=== PATIENT | female | born 1960 | race Caucasian/White ===

== ENCOUNTER 2017-07-05 11:49 | Emergency (ER) | payer OTHER ==
[2017-07-05 11:59] VITALS: RESP 18
--- NOTE | 2017-07-05 11:59 | CPEKG ---
Heart Rate: 64 RR Interval: 938 P-R Interval: 152 QRSD Interval: 104 QT Interval: 400 QTC Interval: 413 P [place]: -11 QRS [place]: 70 T Wave [place]: 36 EKG Severity - NORMAL ECG - EKG Impression: SINUS RHYTHM Electronically Signed By: Michaela Khanna 05-Jul-2017 14:00:56
[2017-07-05 12:16] VITALS: TEMP 98.8
[2017-07-05 12:30] LABS: % IMMATURE GRANULYOCYTES 0.3 % (0.0-1.1); ABSOLUTE IMMATURE GRANULOCYTES 0.01 10^3/uL (0.00-0.10); ADD DIFF? NO; ADD MORPH? NO; ADD SCAN? NO; ATYPICAL LYMPHOCYTE FLAG 0 (0-99); FRAGMENT RBC FLAG 0 (0-99); HEMATOCRIT 41.8 % (38.0-47.0); HEMOGLOBIN 14.3 g/dL (12.6-16.3); LEFT SHIFT FLG 0 (0-99); LIPEMIA HEMOLYSIS FLAG 90 (0-99); MEAN CELL HEMOGLOBIN 30.1 pg (27.9-34.1); MEAN CELL HEMOGLOBIN CONCENTR. 34.2 g/dL (32.4-36.7); MEAN PLATELET VOLUME 9.6 fL (8.7-11.7); PLATELET CLUMPS FLAG 0 (0-99); PLATELET COUNT 196 10^3/uL (150-400); RED BLOOD CELL COUNT 4.75 10^6/uL (4.18-5.33)
[2017-07-05] MEDS ORDERED: ASPIRIN 81 MG CHEWABLE TAB PO ONE (12:30)
--- NOTE | 2017-07-05 12:34 | EDPHY ---
H & P Stated Complaint: chest pressure, hard to get deep breath x 2 weeks Time Seen by Provider: 07/05/17 11:59 HPI/ROS: CHIEF COMPLAINT: Chest pain History by patient HISTORY OF PRESENT ILLNESS: 57-year-old woman with a history of hypertension and high cholesterol presents complaining of pressure-like chest pain which has been going on and off for the past 2 weeks. Just over a month ago the patient helped a friend cleaned out her parents house where they were her orders and after that she developed a pharyngitis for which she was treated with the Z-Jaya and prednisone and had symptoms linger for quite a while. That highly resolved although she still has some fatigue left over from that and then she developed these chest symptoms. She denies shortness of breath but sometimes feels like she can't take a deep breath all the way in. Symptoms are nonexertional and can occur at rest and are not relieved by rest. She can't say exactly how long the usually lasts although she says she is having it every day. It is not associated with any nausea, vomiting or diaphoresis. There has been no weight gain or weight loss. She has some chronic mild leg swelling with the heat. She had a fever at the beginning of the pharyngitis but none since. She denies any cough. The chest pain is nonpleuritic. Patient's cardiac risk factors are notable for her age, hypertension and high cholesterol. Her mother had a heart attack in her 70s. Patient has never been a smoker. She says she typically walks 3 miles a day but has not done this in about a month because of her recent illness. Patient states she had a nondiagnostic exercise stress test about a year ago. REVIEW OF SYSTEMS: As in HPI, and all other systems reviewed and are negative Source: Patient - Personal History Current Tetanus/Diphtheria Vaccine: Yes - Medical/Surgical History Hx Asthma: No Hx Chronic Respiratory Disease: No Hx Diabetes: No Hx Cardiac Disease: No Hx Renal Disease: No Hx Cirrhosis: No Hx Alcoholism: No Hx HIV/AIDS: No Hx Splenectomy or Spleen Trauma: No Other PMH: htn. c section x 3. tonsils. uterine septum rescetion. carpal tunnel. trigger thumb release - Family History Significant Family History: Heart disease - Social History Smoking Status: Never smoked - Physical Exam Exam: General Appearance: Alert, comfortable, well appearing. Eyes: Pupils equal and round no pallor or injection. ENT, Mouth: Mucous membranes moist. Respiratory: Normal, effort, lungs are clear to auscultation. No wheezes, rales or rhonchi. Cardiovascular: Regular rate and rhythm. S1, S2, no murmurs, gallops or rubs appreciated, no chest wall tenderness Gastrointestinal: Abdomen is soft and nontender, no masses, bowel sounds normal. Back: No CVA tenderness, no bony tenderness Neurological: Awake, alert and oriented x 3, no pronator drift, normal gait, no pronator drift Skin: Warm and dry, no rashes. Musculoskeletal: No deformities or tenderness. Extremitie:s full range of motion, trace right greater than left pretibial edema Psychiatric: Patient has normal affect, there is no agitation. Constitutional: Initial Vital Signs Temperature (C) 37.1 C 07/05/17 11:55 Heart Rate 66 07/05/17 11:55 Respiratory Rate 18 07/05/17 11:55 Blood Pressure 179/100 H 07/05/17 11:55 O2 Sat (%) 97 07/05/17 11:55 O2 Delivery Mode Room Air Allergies/Adverse Reactions: Penicillins Allergy (Verified 07/05/17 12:00) Home Medications: Medication Instructions Recorded Atorvastatin Calcium 07/05/17 Carvedilol 07/05/17 Estrace 07/05/17 IRON 07/05/17 Losartan/Hydrochlorothiazide 07/05/17 Terazosin HCl 07/05/17 Vitamin D3 (*) 07/05/17 Medical Decision Making - Diagnostics Imaging Results: Imaging Impressions Chest X-Ray 07/05/17 12:30 Impression: No acute pulmonary disease. ED Course/Re-evaluation: 57-year-old woman presents complaining of ongoing pressure-like chest pain without associated symptoms and fairly atypical for cardiac. ECG shows normal sinus rhythm at a rate of 64 with normal axis, normal intervals and no ST segment abnormalities. First troponin was negative. A chest x-ray showed nothing acute and was reassuring to patient who felt she might have some strange infection related to clearing up the [employer]. I did review the patient's prior old records [facility] which showed a nondiagnostic cardiac exercise stress test. By heart score patient is low risk. The plan, therefore , is to repeat a 3 hour troponin and if this is negative she can follow up with primary care physician discuss the need for further cardiac testing. Patient understands and is agreeable to this plan. - Data Points Laboratory Results: Laboratory Results 07/05/17 12:00 07/05/17 12:45 07/05/17 07/05/17 12:45 12:00 WBC 4.00 10^3/uL 10^3/uL (3.80-9.50) RBC 4.75 10^6/uL 10^6/uL (4.18-5.33) Hgb 14.3 g/dL g/dL (12.6-16.3) Hct 41.8 % % (38.0-47.0) MCV 88.0 fL fL (81.5-99.8) MCH 30.1 pg pg (27.9-34.1) MCHC 34.2 g/dL g/dL (32.4-36.7) RDW 13.0 % % (11.5-15.2) Plt Count 196 10^3/uL 10^3/uL (150-400) MPV 9.6 fL fL (8.7-11.7) Neut % (Auto) 57.9 % % (39.3-74.2) Lymph % (Auto) 24.0 % % (15.0-45.0) [place] % (Auto) 10.5 % % (4.5-13.0) Eos % (Auto) 6.5 % % (0.6-7.6) Baso % (Auto) 0.8 % % (0.3-1.7) Nucleat RBC Rel Count 0.0 % % (0.0-0.2) Absolute Neuts (auto) 2.32 10^3/uL 10^3/uL (1.70-6.50) Absolute Lymphs (auto) 0.96 10^3/uL L 10^3/uL (1.00-3.00) Absolute Monos (auto) 0.42 10^3/uL 10^3/uL (0.30-0.80) Absolute Eos (auto) 0.26 10^3/uL 10^3/uL (0.03-0.40) Absolute Basos (auto) 0.03 10^3/uL 10^3/uL (0.02-0.10) Absolute Nucleated RBC 0.00 10^3/uL 10^3/uL (0-0.01) Immature Gran % 0.3 % % (0.0-1.1) Immature Gran # 0.01 10^3/uL 10^3/uL (0.00-0.10) Sodium 144 mEq/L mEq/L (134-144) Potassium 3.9 mEq/L mEq/L (3.5-5.2) Chloride 104 mEq/L mEq/L (97-110) Carbon Dioxide 28 mEq/l mEq/l (22-31) Anion Gap 12 mEq/L mEq/L (8-16) BUN 18 mg/dL mg/dL (7-23) Creatinine 0.9 mg/dL mg/dL (0.6-1.0) Estimated GFR > 60 Glucose 92 mg/dL mg/dL (70-100) Calcium 10.3 mg/dL mg/dL (8.5-10.4) Total Bilirubin 1.1 mg/dL mg/dL (0.1-1.4) AST 40 IU/L IU/L (14-46) ALT 67 IU/L H IU/L (9-52) Alkaline Phosphatase 87 IU/L IU/L (38-126) Troponin I < 0.012 ng/mL ng/mL (0.000-0.034) Total Protein 7.3 g/dL g/dL (6.3-8.2) Albumin 4.4 g/dL g/dL (3.5-5.0) Medications Given: Discontinued Medications Aspirin (Aspirin) 324 mg PO EDNOW ONE Stop: 07/05/17 12:31 Last Admin: 07/05/17 12:44 Dose: 324 mg Departure - Departure Clinical Impression: Chest pain Qualifiers: Chest pain type: unspecified Qualified Code(s): R07.9 - Chest pain, unspecified Condition: Good Instructions: Chest Pain (ED) Additional Instructions: You were seen by Dr. Michaela Khanna today. Your x-ray today was normal. There is no evidence of acute heart attack. The cause of your chest pain is unclear. Please follow-up with your primary care physician as soon as possible to discuss need for further cardiac testing. Return for any worsening or new concerns. Referrals: Júnior Mcduffie DO [Primary Care Provider] - As per Instructions
[2017-07-05 12:39] LABS: ALANINE AMINOTRANSFERASE 67 IU/L (9-52); ALBUMIN 4.4 g/dL (3.5-5.0); ALKALINE PHOSPHATASE 87 IU/L (38-126); ANION GAP 12 mEq/L (8-16); ASPARTATE AMINOTRANSFERASE 40 IU/L (14-46); BILIRUBIN,TOTAL 1.1 mg/dL (0.1-1.4); CALCIUM 10.3 mg/dL (8.5-10.4); CARBON DIOXIDE 28 mEq/l (22-31); CHLORIDE 104 mEq/L (97-110); CREATININE 0.9 mg/dL (0.6-1.0); GLOMERULAR FILTRATION RATE > 60; GLUCOSE 92 mg/dL (70-100); POTASSIUM 3.9 mEq/L (3.5-5.2); SODIUM 144 mEq/L (134-144); TOTAL PROTEIN 7.3 g/dL (6.3-8.2)
[2017-07-05 12:52] LABS: TROPONIN I < 0.012 ng/mL (0.000-0.034)
[2017-07-05 16:33] VITALS: BP 138/73; PULSE 58; O2SAT 94
== END 2017-07-05 16:31 | disposition home or self-care (01) ==
LOC: CED 11:49
DX: R07.9 Chest pain, unspecified (principal); I10 Essential (primary) hypertension
CPT/HCPCS: 71020-PO; 80053-PO; 84484-PO; 85025-PO